=== PATIENT | female | born 1945 | race Caucasian/White ===

== ENCOUNTER → 2024-04-10 14:16 | Outpatient (REF) | payer MEDICARE, SELFPAY | LOC: WDC 14:16 | PROVIDERS: ATTENDING PHYSICIAN Nurse Practitioner Primary Care; FAMILY PHYSICIAN Family Medicine | DX: N64.4 Mastodynia (principal); Z85.3 Personal history of malignant neoplasm of breast; C50.412 Malignant neoplasm of upper-outer quadrant of left female breast; D05.11 Intraductal carcinoma in situ of right breast | CPT/HCPCS: 76642 ==

== ENCOUNTER 2024-06-23 18:55 | Emergency (ER) | payer MEDICARE, SELFPAY ==
[2024-06-23 19:04] VITALS: BP 204/108
[2024-06-23 19:24] LABS: % Basophils 0.8 % (0-2); % Eosinophils 2.7 % (0-6); % Immature Granulocytes 0.2 % (0-0.5); % Lymphocytes 16.5 % (20.5-51.1); % Monocytes 8.4 % (1.7-9.3); % Neutrophils 71.4 % (42.2-75.2); Absolute Basophils 0.1 10^3/uL (0-0.2); Absolute Eosinophils 0.2 10^3/uL (0-0.7); Absolute Lymphocytes 1.4 10^3/uL (1.2-3.4); Absolute Monocytes 0.7 10^3/uL (0.1-0.6); Absolute Neutrophils 5.9 10^3/uL (1.4-6.5); Hematocrit 38.4 % (37.0-47.0); Hemoglobin 13.1 g/dL (12.0-16.0); Mean Corp Hgb Conc. 34.1 g/dL (33.0-37.0); Mean Corpuscular Volume 88.1 fL (81.0-99.0); Mean Platelet Volume 9.3 fL (7.4-10.4); Nucleated Red Blood Cells % 0 %; Platelet Count 244 10^3/uL (130-400); Red Blood Cell Count 4.36 10^6/uL (4.20-5.40); Red Cell Dist. Width 12.3 % (11.5-14.5); White Blood Cell Count 8.3 10^3/uL (4.8-10.8)
[2024-06-23 19:48] LABS: ALT (SGPT) 33 U/L (0-35); AST (SGOT) 42 U/L (14-36); Albumin 4.7 g/dl (3.5-5.0); Alkaline Phosphatase 87 U/L (38-126); Blood Urea Nitrogen 14 mg/dl (7-17); Calcium 9.5 mg/dl (8.4-10.2); Carbon Dioxide 29 mmol/L (22-30); Chloride 101 mmol/L (98-107); Glucose 113 mg/dl (70-99); Potassium 4.4 mmol/L (3.5-5.1); Sodium 139 mmol/L (135-145); Total Bilirubin 0.4 mg/dl (0.2-1.3); Total Protein 7.6 g/dl (6.3-8.2); eGFR > 60.00
[2024-06-23 21:51] VITALS: BP 191/81
[2024-06-23 22:00] VITALS: BP 189/81
[2024-06-23 23:00] VITALS: BP 194/85
[2024-06-23 23:20] VITALS: BP 175/81
[2024-06-23 23:40] VITALS: BP 183/80
[2024-06-24] VITALS: BP 185/82
[2024-06-24] MEDS: TENORMIN 50 MG PO (00:10)
[2024-06-24 00:30] VITALS: BP 194/88
[2024-06-24 01:00] VITALS: BP 181/87
[2024-06-24 01:30] VITALS: BP 185/70
--- NOTE | 2024-06-24 01:43 | ED.GENMED ---
History of Present Illness
General
Chief Complaint: Blood Pressure Problem
Source: patient
Exam Limitations: none
Time Seen by Provider: 06/23/24 23:30
History of Present Illness
History of Present Illness:
This is a 79 year old female that comes in with c/o hypertension. States that she went to the cancer doctor and she was told that her BP was elevated. States that it was 179/60. States that she was told to get this checked. States that she went
home and checked her BP and it was still elevated. State that it was 169/80. States that she takes Atenolol 50mg BID and Lisinopril 10mg daily. Denies any fever, chills, chest pain, SOB, abd pain, nausea, vomiting, diarrhea, headache, dizziness,
urinary burning.
Past History
Past History
ED Past Medical History: Cancer (Breast Cancer), HTN and Hypercholesterolemia
ED Past Surgical History: Other (Bilateral lumpectomy)
Social History
Tobacco: Non-smoker
Alcohol: Occasional
Personal:
Living: with family
Review of Systems
Review of Systems
All Other Systems: ROS reviewed and negative except as documented in HPI and ROS
Constitutional: Reports no symptoms; Denies fever or chills
EENT: Reports no symptoms
Respiratory: Reports no symptoms; Denies cough or trouble breathing
Cardiac: Reports no symptoms; Denies chest pain
ABD/GI: Reports no symptoms; Denies abdominal pain, nausea, vomiting or diarrhea
: Reports no symptoms; Denies dysuria, frequency or urgency
Musculoskeletal: Reports no symptoms
Skin: Reports no symptoms
Neurological: Reports no symptoms; Denies dizzy or headache
Psychiatric: Reports no symptoms
Phy Exam
General Physical Exam
General Presentation: well appearing and no apparent distress
General age: appears stated age
General Skin: warm and dry
General Habitus: elderly
General Mental: alert
General Hydration: appears well hydrated
ENT Exam
ENT Exam: TM's normal, pharynx normal and neck supple
Eye Exam
Eye Exam: EOMI
Cardiovascular Exam
Cardiovascular Exam: regular rate/rhythm, no edema and normal peripheral pulses
Pulmonary Exam
Pulmonary Exam: lungs clear, no respiratory distress, no rales, chest non tender, no crackles, no rhonchi, no wheezing and no cough
Gastrointestinal Exam
Gastrointestinal Exam: normal bowel sounds, non tender, soft, no organomegaly, no pulsatile mass and non distended
Musculoskeletal Exam
Musculoskeletal Exam: full ROM and no edema
Skin Exam
Skin Exam: normal color, warm/dry, no rash and no petechia
Psychiatric Exam
Psychiatric Exam: normal mood/affect
Course
Orders/Labs/Results
Orders:
Orders
06/23/24 19:07
Electrocardiogram (*1) Urgent
Reason for Study: Hypertension, Benign
EKG- Treatment ONCE
06/23/24 19:15
Complete Blood Count/With Diff Urgent
Comprehensive Metabolic Panel Urgent
06/23/24 23:51
Atenolol [Tenormin] 50 mg PO NOW STA
Abnormal Lab Results
06/23/24
19:15
Absolute Monos (auto) 0.7 H 10^3/uL
(0.1-0.6)
Lymphocytes % 16.5 L %
(20.5-51.1)
Glucose 113 H mg/dl
(70-99)
AST 42 H U/L
(14-36)
06/23/24 19:15
06/23/24 19:15
Glucose nonfasting. AST mildly elevated.
Vital Signs
Initial and Last Documented VS:
Initial Vital Signs
Temp Pulse Resp BP Pulse Ox
98.3 F 72 18 204/108 97
06/23/24 19:04 06/23/24 19:04 06/23/24 19:04 06/23/24 19:04 06/23/24 19:04
Last Documented Vital Signs
Temp Pulse Resp BP Pulse Ox
98.3 F 72 18 181/87 95
06/23/24 19:04 06/24/24 00:10 06/23/24 22:17 06/24/24 01:00 06/24/24 00:05
MDM/Problems Addressed
Differential Diagnosis Includes:
Hypertension,
MDM/Problems Addressed:
This is a 79 year old female that comes in with c/o hypertension. States that she went to the Oncologist today and was told that her BP was elevated. States that she took her BP at home and it remained elevated.
Will check labs and Explained to patient that her Bp at this time is elevated but she would be given her Atenolol which she had not taken and watch to see if her BP comes down.
BP before discharge were running 185/70 and 181/70. Patient to follow up with the family doctor and her staff writer for further evaluation and possible a medication change. Return with any concerns.
Chronic conditions affecting care: HTN
Acute Exacerbation and/or Progression of Chronic Illness: HTN
*Pulse Oximetry
Patient hypoxic: no
*EKG
Interpreted by ED Provider?: Yes
Heart Rate: 78
Rate: normal
Rhythm: sinus
[place]: left axis deviation
Interval: normal interval
QRS Pattern: normal QRS
Ischemia: no ischemia
*Child Life Therapist Interpretation
Rate: Child Life Therapist- N/A
*Critical Care Note
Total Time (30-74mins, 75-104mins- exclusive of procedures): Not Applicable
ED Attending Note
-
Portions of this chart may have been created with voice recognition software.� Occasional wrong word or��sound alike� substitutions may have occurred due to the inherent limitations of voice recognition software.
Discharge Plan
Departure
Patient Disposition: Home (Routine Discharge)
Date of Disposition: 06/24/24
Time of Disposition: 01:43
Patient with high blood pressure during this ER visit?: Yes
Condition: Good
Covid-19: Not Applicable
Discharge Problem:
Hypertension
Instructions: High Blood Pressure (DC), BLOOD PRESSURE
Referrals:
Mila Sung MD [Family Provider] - Follow up in 2-3 days
Activity Restrictions/Additional Instructions:
As discussed, your blood work is normal. Please take your blood pressure medication as directed. Follow up with the family doctor for recheck. When you are taking yout blood pressure, please sit for 5 min in a chair with your feet on the floor and
arm level with the heart Before taking your blood pressure. IF YOU HAVE ANY OTHER CONCERNS PLEASE RETURN TO THE EMERGENCY ROOM.
Interventions
Interventions:
*Risk Screen - Suicide Last Done: 06/23/24 19:04
*General Assessment Last Done: 06/23/24 19:04
*Neglect/Abuse Screening Last Done: 06/23/24 19:04
*ED COVID-19 Vaccine History Last Done: 06/23/24 19:04
ED- Cardiac Assessment Last Done: 06/23/24 21:48
ED- Neurological Assessment Last Done: 06/23/24 21:48
ED- Pulmonary Assessment Last Done: 06/23/24 21:48
Discharge Date and Time
Print Language: UPPER SORBIAN
[2024-06-24 01:45] VITALS: BP 201/90
== END 2024-06-24 01:45 | disposition home or self-care (01) ==
LOC: EMR 18:55
PROVIDERS: Student in an Organized Health Care Education/Training Program; EMERGENCY PHYSICIAN Student in an Organized Health Care Education/Training Program; FAMILY PHYSICIAN Family Medicine
DX: I10 Essential (primary) hypertension (principal); E78.00 Pure hypercholesterolemia, unspecified; Z85.3 Personal history of malignant neoplasm of breast; Z79.899 Other long term (current) drug therapy
CPT/HCPCS: 99283; 80053; 85025; 93005; 99285